=== PATIENT | male | born 1985 | race Caucasian/White ===

== ENCOUNTER 2022-07-02 14:20 | Outpatient (CLI) | payer OTHER | END 2022-07-02 14:21 | disposition home or self-care (01) | LOC: ULT 14:20 | PROVIDERS: ATTEND Nurse Practitioner Family | DX: N50.89 Other specified disorders of the male genital organs (principal) | CPT/HCPCS: 76870; 93976 ==

== ENCOUNTER 2022-07-11 15:59 | Outpatient (CLI) | payer OTHER ==
[2022-07-11 17:03] LABS: Hemoglobin 14.7 g/dL (13.5-17.5); Mean Corpuscular HGB CONC 33.8 g/dL (32.0-36.0); Mean Corpuscular Hemoglobin 29.6 pg (27.0-33.0); Mean Corpuscular Volume 87.7 fl (81.2-95.1); Mean Platelet Volume 9.7 fl (7.4-10.4); Platelet Count 289 10x3/uL (150-450); RBC Distribution Width 12.2 % (11.5-14.5); Red Blood Cell (RBC) Count 4.96 10x6/uL (4.32-5.72); White Blood Cell (WBC) Count 9.3 10x3/uL (3.5-10.5)
[2022-07-11 17:04] LABS: Bilirubin Neg (Negative); Blood, Urine Negative (Negative); Clarity Clear (Clear); Glucose, Urine (Dipstick) Normal (Negative); Ketone, Urine Negative (Negative); Leukocyte Negative (Negative); Nitrite Negative (Negative); Protein, Urine (Dipstick) Negative (Neg-Trace); Urobilinogen Normal mg/dL (Less than 2)
[2022-07-11 17:16] LABS: Anion Gap 13 mmol/L (10-20); BUN (Urea Nitrogen) 14 mg/dL (8.9-20.6); Calc. Creatinine Clearance 0 mL/min (70-130); Calcium 9.3 mg/dL (7.8-10.44); Carbon Dioxide 27 mmol/L (22-29); Chloride 103 mmol/L (98-107); Estimated GFR 114; Glucose 106 mg/dL (70-105); Potassium 4.2 mmol/L (3.5-5.1); Sodium 139 mmol/L (136-145)
[2022-07-11 17:17] LABS: PTT 27.7 sec (22.0-33.0); Prothrombin Time 10.3 sec (9.5-12.1)
[2022-07-11 17:30] LABS: Bacteria/HPF Rare-Few HPF (None Seen); RBC/HPF 0-3 HPF (0-3); Sperm/HPF Rare HPF (None Seen); Squamous Epithelial None Seen HPF (0-3); WBC/HPF 0-3 HPF (0-3)
== END 2022-07-11 16:00 | disposition home or self-care (01) ==
LOC: LABBT 15:59
PROVIDERS: ATTEND Urology
DX: Z01.812 Encounter for preprocedural laboratory examination (principal); N50.89 Other specified disorders of the male genital organs
CPT/HCPCS: 80048; 81001; 85027; 85610; 85730; 87077; 87086

== ENCOUNTER 2022-07-18 09:19 | Day surgery (SDC) | payer OTHER ==
[2022-07-11 16:32] VITALS: BMI 25.1
[2022-07-18] MEDS ORDERED: Bupivacaine 0.25% HCL 30 ML VIAL ONE (10:43)
[2022-07-18] MEDS ORDERED: Lidocaine 1% MPF 2 ML VIAL ONE (11:15)
[2022-07-18] MEDS ORDERED: Sodium Chloride 0.9% 100 ML ONE (11:16)
[2022-07-18] MEDS ORDERED: CEFAZOLIN 2 GM VIAL ONE (11:16)
[2022-07-18] MEDS ORDERED: Fentanyl 250 MCG/5 ML VIAL ONE (12:42)
[2022-07-18] MEDS ORDERED: Midazolam HCl 2 mg/2 ml Vial ONE (13:09)
[2022-07-18] MEDS ORDERED: Ondansetron PF 4 MG/2 ML Vial ONE (13:19)
[2022-07-18] MEDS ORDERED: Dexamethasone 20 MG/5 ML VIAL ONE (13:19)
[2022-07-18] MEDS ORDERED: Lidocaine 1% PF 5 ML VIAL ONE (13:19)
[2022-07-18] MEDS ORDERED: PROPOFOL 200 MG/20 ML VIAL ONE (13:19)
[2022-07-18] MEDS ORDERED: HYDROcodone/Acetaminophen 5/325 mg Tablet ONE (15:47)
== END 2022-07-18 17:34 | disposition home or self-care (01) ==
LOC: SDC 09:19
PROVIDERS: ATTEND Urology
PROC: 0VTB0ZZ Resection of Left Testis, Open Approach (ICD-10-PCS; principal; 2022-07-18)
DX: C62.12 Malignant neoplasm of descended left testis (principal); Z87.891 Personal history of nicotine dependence
CPT/HCPCS: 88309; J1100; J2250; J2405; J2704; J3010; J3490; S0020